=== PATIENT | male | born 1990 | race Caucasian/White ===

== ENCOUNTER 2017-04-09 06:11 | Emergency (ER) | payer OTHER ==
[~2017-04-09 06:11] MED LIST: BUP100 PO; DIV250ER PO; DIVA-1 PO; ESC10 PO; ESCI20TA38 PO; HYDR-4309 PO; MIR15 PO; NO RTN MEDS; PENI-24 PO; TRAZ150T61 PO; ZOL5 PO; ZOLP12.545 PO
[2017-04-09] MEDS ORDERED: IBUPROFEN 600 MG TAB PO ONE (06:25)
--- NOTE | 2017-04-09 06:26 | ER Report ---
History and Physical Time Seen By MD: 06:24 Hx. of Stated Complaint: Patient was running downstairs and twisted right ankle HPI/ROS CHIEF COMPLAINT: Right ankle injury HISTORY OF PRESENT ILLNESS: 26-year-old male presents via wheelchair complaining of severe right ankle pain after rolling his ankle while running stairs this morning to work out. She notes 9/10 throbbing pain in his right ankle. There is obvious swelling in the lateral malleolus. Patient denies any other injuries. Allergies: Coded Allergies: No Known Drug Allergies (Unverified , 04/09/17) Home Meds Active Scripts Oxycodone Hcl/Acetaminophen (PERCOCET 5-325 MG TABLET) 1 Each Tablet, 1 EACH PO Q4-6H Y for PAIN, #12 Prov:MAGDALENAKENAN Daylin ELIAS 04/09/17 Discontinued Reported Medications [No Rtn Meds] No Conflict Check, 0 Refills 05/12/10 Discontinued Scripts Penicillin V Potassium 500 Mg Tab (PENICILLIN V POTASSIUM 500 MG TAB) 500 Mg Tablet, 500 MG PO TID, #30 Prov:JUICE VARGAS DO 06/29/13 Hydrocodone Bit/Acetaminophen (NORCO 5-325 TABLET) 1 Each Tablet, 1 EACH PO Q6- 8H, #20 Prov:JUICE VARGAS DO 06/29/13 Hx Smoking: No Hx Substance Use Disorder: Yes Hx Alcohol Use: Yes Constitutional Vital Sign - Last 24 Hours 04/09/17 04/09/17 06:16 07:23 Temp 97.6 Pulse 83 70 Resp 16 B/P (MAP) 125/83 130/80 (97) Pulse Ox 94 O2 Delivery Room Air Physical Exam General appearance: Mild distress Respiratory: Chest is non tender, lungs are clear to auscultation. Cardiac: Regular rate and rhythm Extremities: Right lower extremity is neurovascularly intact. There is obvious lateral soft tissue swelling around the malleolus. There is no tenderness of the base of the 5th metatarsal. All digits are neurovascularly intact. There is no pain on palpation of the knee. DIFFERENTIAL DIAGNOSIS: After history and physical exam differential diagnosis was considered for sprain, strain, fracture, dislocation, contusion Medical Decision Making EKG/Imaging Imaging X-ray: Right ankle, 3 views was obtained. I viewed the images myself on the PACS system. My interpretation of the images is: No fracture no dislocation or malalignment, notable soft tissue swelling. The radiologist interpretation had no clinically significant variation from this interpretation. ED Course/Re-evaluation ED Course Patient was admitted to an examination room. H&P was done. The differential diagnoses was considered. On clinical examination. Patient has significant right lateral ankle swelling. Diagnostic x-rays show no obvious fracture. Patient's placed in air splint and Ameya wrap. He is advised to conservative treatment. He reports that he has crutches at home. Patient's advised ibuprofen 6 and her milligrams 3 times daily and ice packs for at least 2 days. Patient was given the number to follow-up with Dr. Bruno orthopedics if he is unimproved. Decision to Disposition Date: Apr 09, 2017 Decision to Disposition Time: 06:41 Depart Departure Latest Vital Signs Vital Signs Date Time Temp Pulse Resp B/P (MAP) Pulse Ox O2 Delivery O2 Flow Rate FiO2 04/09/17 07:23 70 130/80 (97) 04/09/17 06:16 97.6 16 94 Room Air Impression: Primary Impression: Right ankle sprain Condition: Improved Disposition: HOME OR SELF-CARE Referrals: TANESHA BRUNO MD New Scripts Oxycodone Hcl/Acetaminophen (PERCOCET 5-325 MG TABLET) 1 Each Tablet 1 EACH PO Q4-6H Y for PAIN, #12 Prov: KENAN NICHOLS DO 04/09/17 Patient Instructions: Ankle Sprain (ED) Additional Instructions: Take ibuprofen 200 mg 3 tablets 3 times a day with food for inflammatory pain relief Apply ice to ankle 30 minutes 3-4 times per day for the 1st 2 days Wear splint for one week Follow-up with your primary care or student health if unimproved in 5-7 days Problem Qualifiers Primary Impression: Right ankle sprain Encounter type: initial encounter Involved ligament of ankle: unspecified ligament Qualified Codes: S93.401A - Sprain of unspecified ligament of right ankle, initial encounter KENAN NICHOLS DO Apr 09, 2017 06:26
[2017-04-09] MEDS ORDERED: OXYC-865 PO (06:44)
--- NOTE | 2017-04-09 06:51 | RADIOLOGY IMAGING REPORT ---
FAC[place] [facility] [place] NAME: Ramsey Sam : 1990 MR: [id number] V: [id number] EXAM DATE: ORDERING PHYSICIAN: KENAN NICHOLS TECHNOLOGIST: Location: [facility] - [place] Patient: Ramsey Sam : 1990 Visit/Account:[id number] Date of Sevice: 04/09/2017 EXAMINATION: Right ankle radiographs 3 views HISTORY: Ankle injury. COMPARISON: 11/11/2008. FINDINGS: AP, lateral and oblique views of the right ankle are obtained. Bones: There is a tiny bone nilo below the lateral process of the talus, which may be corticated. N o other acute fracture or dislocation. Joint spaces: Negative. Hardware: None. Alignment: Normal. Soft tissues: Severe lateral soft tissue swelling. IMPRESSION: 1. Bone nilo below the lateral process of the right talus could be developmental, or related to acut e or chronic injury. 2. Severe lateral soft tissue swelling without other acute right ankle fracture. Report Dictated By: Sharon Gamble MD at 04/09/2017 6:46 AM Report E-Signed By: Sharon Gamble MD at 04/09/2017 6:48 AM WSN:[id number]
[2017-04-09 07:23] VITALS: BP 130/80
== END 2017-04-09 07:23 | disposition home or self-care (01) ==
LOC: ER 06:20
DX: S93.401A Sprain of unspecified ligament of right ankle, initial encounter (principal); Y93.02 Activity, running
CPT/HCPCS: 73610; 99282; L1930

== ENCOUNTER 2018-05-04 06:19 | Emergency (ER) | payer SELFPAY ==
[~2018-05-04 06:19] MED LIST changes: -HYDR-4309 PO; +HYDR-653 PO; +OXYC-865 PO
[2018-05-04 06:20] VITALS: BP 91/78
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
[2018-05-04] MEDS ORDERED: DIPHTH/TETANUS/ACEL. PERTUSSIS IM ONLY ONE (06:25)
== END 2018-05-04 06:37 | disposition home or self-care (01) ==
LOC: ER 06:23
DX: F10.920 Alcohol use, unspecified with intoxication, uncomplicated (principal); S00.81XA Abrasion of other part of head, initial encounter
CPT/HCPCS: 90715; 96372; 99283